=== PATIENT | female | born 1975 | race Two or more races ===

== ENCOUNTER 2023-08-08 16:40 | Emergency (ER) | payer OTHER ==
[~2023-08-08] VITALS: Ht 152.4 cm; Wt 75.0 kg
[2023-08-08 16:42] VITALS: BP 150/94; PULSE 88; RESP 16; O2SAT 97
== END 2023-08-08 18:21 | disposition left against medical advice (07) ==
LOC: ER 16:40 → EDBD 16:40 → ER 18:21
DX: R11.2 Nausea with vomiting, unspecified (principal); Z53.21 Procedure and treatment not carried out due to patient leaving prior to being seen by health care provider